=== PATIENT | female | born 1955 | race Caucasian/White ===

== ENCOUNTER 2019-04-13 10:20 | Emergency (ER) | payer BC, SELFPAY ==
[2019-04-13 10:45] VITALS: BP 162/76; PULSE 60; RESP 12; TEMP 36.1; O2SAT 99
--- NOTE | 2019-04-13 12:44 | ED.SKABFB ---
HPI - Skin/Abscess/Foreign Bdy General Chief complaint: Skin/Abscess/Foreign Body Stated complaint: bit by cat on augmentin sent by phys Time Seen by Provider: 04/13/19 12:44 Mode of arrival: Ambulatory History of Present Illness HPI narrative: Cat bite to the distal and middle finger right side. Has been on Augmentin now for 2 days and has taken 3 doses. There is some mild fullness over the tuft of the finger but no lymphangitic spread. She was concerned that it was not healed and wanted reassurance that additional treatment was not needed. She has had previous episodes and required ceftriaxone. She and her live on work is and there was no medical care available on [place] today. Review of Systems Review of Systems Narrative: Denies ? fever ? cough ? cold ? chills ? chest pain ? dyspnea ? orthopnea ? wheezing ? abdominal pain ? change to bowel or bladder habits ? nausea vomiting ? skin changes ? rashes Patient History Social History Smoking Status: Never smoker Smoking Status: Never smoker alcohol intake frequency: other Substance Use Type: does not use Exam Narrative Exam Narrative: General: Alert appropriate in no acute distress Respiratory: Able to speak in full sentences, no obvious respiratory distress Extremity: Minor erythema with puncture wounds to the right middle finger distally. There is no expanding lymphangitis streaking no erythema extending more proximal to the DI P joint there is no axillary adenopathy Neurologic: Grossly intact no obvious asymmetries or abnormalities Psych, appropriate insight and affect, cooperative Initial Vital Signs Initial Vital Signs: Vital Signs Temperature 97 F L 04/13/19 10:45 Pulse Rate 60 04/13/19 10:45 Respiratory Rate 12 04/13/19 10:45 Blood Pressure 162/76 H 04/13/19 10:45 Pulse Oximetry 99 04/13/19 10:45 Course Vital Signs Vital signs: Vital Signs - 8 hr 04/13/19 10:45 Temperature 97 F L Pulse Rate 60 Respiratory Rate 12 Blood Pressure 162/76 H Pulse Oximetry 99 Discharge Plan Departure Patient Disposition: Home Clinical Impression: Cat bite Qualifiers: Encounter type: initial encounter Qualified Code(s): W55.01XA - Bitten by cat, initial encounter Instructions: DI for Cellulitis -- Adult Activity Restrictions/Additional Instructions: Thank you for coming over today Your finger looks reassuring today. Cat bites can be quite impressive so I am very glad that you have already started Augmentin. The fact that you have only had 3 doses so far with the wound looking is good is it does now is reassuring. I do not think you need any additional antibiotics at this time but you do need to complete the Augmentin you currently have started. If your noticing fevers, chills, red streaks going up your arms or simply have questions about additional care tomorrow please feel free to call the emergency department at [phone] Nam. I am happy to talk with you before you get on a very to come back to the [facility] to make sure a return visit is required. I hope you heal quickly and have a productive day running errands around town Referrals: Chetna Iglesias [Primary Care Provider] -
== END 2019-04-13 13:04 | disposition home or self-care (01) ==
PROVIDERS: Emergency Provider Emergency Medicine; PCP Family Medicine
DX: S61.252A Open bite of right middle finger without damage to nail, initial encounter (principal); W55.01XA Bitten by cat, initial encounter
CPT/HCPCS: 99281

== ENCOUNTER 2020-01-22 14:24 | Emergency (ER) | payer BC, SELFPAY ==
[2020-01-22 14:30] VITALS: BP 166/98; PULSE 68; RESP 18; TEMP 36.9; O2SAT 99; BMI 26.6
[2020-01-22] MEDS: AMOXICILLIN/CLAV 875/125 MG 1 TAB PO (15:03)
--- NOTE | 2020-01-22 15:18 | ED.UPPEXIN ---
HPI - Extremity Injury (Upper) <IRIS Hansen - Last Filed: 01/22/20 20:21> General Chief Complaint: Extremity Injury, Upper Stated Complaint: cat bite last night Time Seen by Provider: 01/22/20 14:30 Source: patient Mode of arrival: Ambulatory Limitations: no limitations History of Present Illness HPI narrative: 64yo female presents to the ED for a cat bite yesterday to her left hand. 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 The cat has had all vaccinations and is up-to-date on rabies. She wash the area, apply Neosporin, and kept her hand elevated. Today she had a virtual visit via telephone about the bite, she was encouraged to be seen in the ED. Patient states the redness has slightly increased today, last night she do lines around the redness. She denies any other symptoms such as fevers, chills, nausea, vomiting, diarrhea, chest pain, or any other concerns. Related Data Previous Rx's Medication Instructions Recorded amoxicillin-pot clavulanate 1 tab PO BID 7 Days #14 tab 01/22/20 [Augmentin] Allergies Allergy/AdvReac Type Severity Reaction Status Date / Time Sulfa (Sulfonamide Allergy Verified 01/22/20 14:30 Antibiotics) Review of Systems <IRIS Hansen - Last Filed: 01/22/20 20:21> Review of Systems Narrative: REVIEW OF SYSTEMS: GENERAL: Denies fever or chills. HENT: Denies head trauma. MUSCULOSKELETAL: Denies weakness, or deformities. INTEGUMENTARY: Complains of cat bite to L hand, see HPI. NEURO: Denies numbness or tingling. Patient History <IRIS Hansen - Last Filed: 01/22/20 20:21> Medical History No significant medical problems Social History Smoking Status: Never smoker Smoking Status: Never smoker alcohol intake frequency: 0-2 drinks per day Substance Use Type: marijuana Exam <IRIS Hansen - Last Filed: 01/22/20 20:21> Initial Vital Signs Initial Vital Signs: Vital Signs Temperature 98.4 F 01/22/20 14:30 Pulse Rate 68 01/22/20 14:30 Respiratory Rate 18 01/22/20 14:30 Blood Pressure 166/98 H 01/22/20 14:30 Pulse Oximetry 99 01/22/20 14:30 PHYSICAL EXAMINATION: GENERAL: 64-year-old female, alert and oriented, no distress. HENT: Normocephalic, atraumatic. RESPIRATORY: Normal respiratory rate, trachea midline, airway patent. No stridor, nasal flaring or accessory muscle use. MUSCULOSKELETAL: Normal gait and coordination. Equal tone and mass bilaterally. EXTREMITIES: CMS intact. Moves all extremities. SKIN: Warm, dry, soft, appropriate color for ethnicity. A 4 cm x 5 cm area of mild erythema noted to posterior aspect of left hand over 1st and 2nd metatarsal. Patient has full range of motion of wrist, fingers, and hand. Equal strength bilaterally including wing coverer strength and wrist strength against resistance. A less than 1 cm laceration with 1-2 puncture wounds noted, no oozing, fluctuance, or bleeding. NEURO: Alert and Oriented X 3. Good coordination. PSYCH: Appropriate affect and mood. <Kristan Carmichael DO - Last Filed: 01/23/20 07:32> Initial Vital Signs Initial Vital Signs: Vital Signs Temperature 98.4 F 01/22/20 14:30 Pulse Rate 68 01/22/20 14:30 Respiratory Rate 18 01/22/20 14:30 Blood Pressure 166/98 H 01/22/20 14:30 Pulse Oximetry 99 01/22/20 14:30 Course <IRIS Hansen - Last Filed: 01/22/20 20:21> Course Course Narrative: Patient was given a dose of antibiotics in the emergency department as she is riding home on the [facility]. Orders Ordered: Discontinued Medications Amoxicillin/Clavulanate Potassium (Amoxicillin/Clav 875/125 Mg) 1 tab PO NOW ONE Stop: 01/22/20 14:56 Last Admin: 01/22/20 15:03 Dose: 1 tab Documented by: DEBBIE Vital Signs Vital signs: Vital Signs - 8 hr 01/22/20 14:30 Temperature 98.4 F Pulse Rate 68 Respiratory Rate 18 Blood Pressure 166/98 H Pulse Oximetry 99 <Kristan Carmichael DO - Last Filed: 01/23/20 07:32> Orders Ordered: Discontinued Medications Amoxicillin/Clavulanate Potassium (Amoxicillin/Clav 875/125 Mg) 1 tab PO NOW ONE Stop: 01/22/20 14:56 Last Admin: 01/22/20 15:03 Dose: 1 tab Documented by: DEBBIE Vital Signs Vital signs: Vital Signs - 8 hr 01/22/20 14:30 Temperature 98.4 F Pulse Rate 68 Respiratory Rate 18 Blood Pressure 166/98 H Pulse Oximetry [address] [facility] - Extremity Injury (Upper) <IRIS Hansen - Last Filed: 01/22/20 20:21> Medical Records Attestation: I reviewed the patient's medical records. Lab Data Attestation: I reviewed the patient's lab results. [facility] Narrative Medical decision making narrative: 64-year-old female presents to the emergency department for a cat bite on her left hand. Bite is rather not impressive, mild erythema without fluctuation or drainage to suggest abscess. Patient has full range of motion of hand, fingers, and wrist against resistance. She is nontoxic appearing, afebrile and non tachycardic. Patient was started on Augmentin. She was encouraged to follow up with PCP and or return for any new or worsening symptoms. Discharge Plan Departure Patient Disposition: Home Clinical Impression: Cat bite Qualifiers: Encounter type: initial encounter Qualified Code(s): W55.01XA - Bitten by cat, initial encounter Instructions: DI for Cat Bite Activity Restrictions/Additional Instructions: Thank you for entrusting me with your care today. As discussed, it appears the cat bite is infected. I prescribed you Augmentin, please take this accordingly. Your prescription was sent to [facility] pharmacy. Please continue to monitor the area, wash the area 1 to 2 times a day. You may apply Neosporin or bacitracin. Keep it elevated as much as possible. Follow-up with your PCP in 1 week if symptoms continue. Return emergency department for any new or worsening symptoms. Prescriptions: New amoxicillin-pot clavulanate [Augmentin] 875-125 mg tablet 1 tab PO BID 7 Days Qty: 14 RF: 0 Referrals: Chetna Iglesias MD [Primary Care Provider] - <Kristan Carmichael DO - Last Filed: 01/23/20 07:32> Cosign ED Attending Cosignature Attestation: I was immediately available in the department for consultation. This documentation has been reviewed and I agree with assessment and plan. Supervised by Kristan Carmichael, DO
== END 2020-01-22 15:07 | disposition home or self-care (01) ==
PROVIDERS: Emergency Provider Nurse Practitioner; PCP Family Medicine
DX: S61.452A Open bite of left hand, initial encounter (principal); W55.01XA Bitten by cat, initial encounter
CPT/HCPCS: 99281; 99283

== ENCOUNTER → 2020-09-07 10:41 | Outpatient (CLI) | payer BC, SELFPAY ==
[2020-09-07 20:00] LABS: COVID19 - ORCAS (NP or Nasal) Negative (Negative)
== END ==
PROVIDERS: PCP Family Medicine; Visit Provider Family Medicine
DX: Z20.822 Contact with and (suspected) exposure to COVID-19 (principal)
CPT/HCPCS: U0003

== ENCOUNTER → 2021-02-15 08:01 | Outpatient (CLI) | payer BC, SELFPAY ==
[2021-02-15 21:16] LABS: COVID19 - ORCAS (NP or Nasal) Negative (Negative)
== END ==
PROVIDERS: PCP Family Medicine; Visit Provider Physician Assistant
DX: Z20.822 Contact with and (suspected) exposure to COVID-19 (principal)
CPT/HCPCS: U0003

== ENCOUNTER → 2021-03-24 08:17 | Outpatient (CLI) | payer BC, SELFPAY ==
[2021-03-24 19:50] LABS: COVID19 - ORCAS (NP or Nasal) POSITIVE (Negative)
== END ==
PROVIDERS: PCP Family Medicine; Visit Provider Physician Assistant Medical
DX: Z01.812 Encounter for preprocedural laboratory examination (principal); Z20.822 Contact with and (suspected) exposure to COVID-19; U07.1 COVID-19
CPT/HCPCS: U0003

== ENCOUNTER → 2022-10-26 12:01 | Outpatient (CLI) | payer BC, SELFPAY ==
[2022-10-26 20:03] LABS: Prothrombin Time 11.8 SECONDS (10.1-12.7)
[2022-10-26 20:07] LABS: Appearance Urine UA CLEAR; Bilirubin Urine UA NEGATIVE (NEGATIVE); Color Urine UA YELLOW; Glucose Urine UA NEGATIVE (Negative); Ketones Urine UA NEGATIVE (NEGATIVE); Leukocyte Esterase Urine UA NEGATIVE (NEGATIVE); Nitrite Urine UA NEGATIVE (Negative); Occult Blood Urine UA NEGATIVE (Negative); Protein Urine UA NEGATIVE (Negative); Urobilinogen Urine UA 0.2 E.U./dL (0.2)
[2022-10-26 20:12] LABS: Hematocrit 41.7 % (36-46); Hemoglobin 14.3 g/dL (12.0-16.0); Mean Corpuscular HGB Conc 34.2 % (30-36); Mean Corpuscular Hemoglobin 28.1 PG (26-34); Platelet Count 243 X10^3/uL (150-400); Red Blood Cell Count 5.09 X10^6/uL (4.0-5.2); Red Cell Distribution Width 14.2 % (11.6-14.8); White Blood Cell Count 5.8 X10^3/uL (4.5-11.0)
[2022-10-26 20:20] LABS: BUN Creatinine Ratio 36.2 (6-22); Blood Urea Nitrogen 25 mg/dL (7-17); Calcium 10.4 mg/dL (8.4-10.2); Carbon Dioxide 30 mmol/L (22-32); Chloride 99 mmol/L (98-107); Estimated Glomerular Filt Rate > 60 mL/min (>60); Glucose 87 mg/dL (80-110); HEMOLYSIS < 15 (0-50); Potassium 4.5 mmol/L (3.4-5.1); Sodium 138 mmol/L (137-145)
[2022-10-26 20:47] LABS: Bacteria Urine None Seen; Culture Indicated Urine Cult Not Indicated; RBC Urine 0-1/HPF (0-5/HPF); Squamous Epithelial Cell Urine 0-1 /HPF (0-5/HPF); Transitional Epi Cells Urine 0-1/HPF (0-5/HPF); WBC Urine 0-1/HPF (0-5/HPF)
== END ==
PROVIDERS: PCP Family Medicine; Visit Provider Orthopaedic Surgery Sports Medicine
DX: Z01.812 Encounter for preprocedural laboratory examination (principal); Z79.01 Long term (current) use of anticoagulants; D50.9 Iron deficiency anemia, unspecified; N39.0 Urinary tract infection, site not specified
CPT/HCPCS: 80048; 81001; 85027; 85610